=== PATIENT | male | born 1955 | race Caucasian/White ===

== ENCOUNTER 2022-05-15 10:03 | Emergency (ER) | payer MEDICARE, OTHER ==
[~2022-05-15] VITALS: Ht 193 cm; Wt 97.1 kg
[~2022-05-15 10:03] MED LIST: ALLO300 PO; ATOR40TA PO; CARV25 PO; CYCL10 PO; DIPASPER PO; FURO40 PO; LOSA50 PO; METF500C PO; Nexium40 MG PO; OXYC10ER PO; POTA10T PO; TEMA30 PO
[2022-05-15] MEDS ORDERED: TRAM50 PO (10:30)
[2022-05-15] MEDS ORDERED: OXAYDO5 M1 PO (10:33)
== END 2022-05-15 10:45 | disposition home or self-care (01) ==
LOC: ER 10:03
DX: M54.16 Radiculopathy, lumbar region (principal); I10 Essential (primary) hypertension; E11.9 Type 2 diabetes mellitus without complications; E78.5 Hyperlipidemia, unspecified; F17.200 Nicotine dependence, unspecified, uncomplicated; Z88.8 Allergy status to other drugs, medicaments and biological substances; Z79.84 Long term (current) use of oral hypoglycemic drugs; Z79.899 Other long term (current) drug therapy
CPT/HCPCS: 99283

== ENCOUNTER 2022-05-26 12:04 | Emergency (ER) | payer MEDICARE, OTHER ==
[~2022-05-26] VITALS: Ht 193 cm; Wt 96.2 kg
[~2022-05-26 12:04] MED LIST changes: +OXAYDO5 M1 PO; +TRAM50 PO
[2022-05-26] MEDS ORDERED: Percocet 5-3251 EACH PO (12:22)
[2022-05-26] MEDS ORDERED: Ultram50 MG PO (12:22)
== END 2022-05-26 12:24 | disposition home or self-care (01) ==
LOC: ER 12:04
DX: Z76.0 Encounter for issue of repeat prescription (principal); I10 Essential (primary) hypertension; E11.9 Type 2 diabetes mellitus without complications; F17.200 Nicotine dependence, unspecified, uncomplicated; Z79.84 Long term (current) use of oral hypoglycemic drugs; Z79.899 Other long term (current) drug therapy
CPT/HCPCS: 99281

== ENCOUNTER 2022-06-02 09:46 | Emergency (ER) | payer MEDICARE, OTHER ==
[~2022-06-02] VITALS: Ht 193 cm; Wt 94.3 kg
[~2022-06-02 09:46] MED LIST changes: +Percocet 5-3251 EACH PO; +Ultram50 MG PO
== END 2022-06-02 13:16 | disposition home or self-care (01) ==
LOC: ER 09:46
DX: H61.23 Impacted cerumen, bilateral (principal); I10 Essential (primary) hypertension; E11.9 Type 2 diabetes mellitus without complications; E78.5 Hyperlipidemia, unspecified; F17.200 Nicotine dependence, unspecified, uncomplicated; Z79.899 Other long term (current) drug therapy; Z79.84 Long term (current) use of oral hypoglycemic drugs; Z88.8 Allergy status to other drugs, medicaments and biological substances
CPT/HCPCS: 69209; 99282-25; A9270